=== PATIENT | male | born 1960 | race Two or more races ===

== ENCOUNTER → 2018-10-03 | Day surgery (SDC) | payer OTHER ==
[~2018-10-03] MED LIST: DULA0.75 SQ; HYDROmorphone 2 MG/ML VIAL IV PRN; IV RINGERS,LACTATED 1000ML 1,000 ML IV SCH; LIDOCAINE 1% PF 2 ML VIAL. ID PRN; LIDOCAINE 2% PF 5 ML VIAL. ONE; MORPHINE SULFATE 2 MG/ML VIAL. IV PRN; ONDANSETRON PF 4 MG/2 ML VIAL. IV PRN; PROCHLORPERAZINE 10 MG/2 ML VIAL. IV PRN; PROPOFOL 40 ML IV ONE; fentaNYL PF VIAL 100 MCG/2 ML VIAL IV PRN
[2018-10-03 12:13] VITALS: BP 124/79
--- NOTE | 2018-10-04 14:07 | PATHOLOGY ---
[facility] Accession Number: [id number] . 01 Material submitted: . PART A: small bowel - SMALL BOWEL BIOPSY PART B: stomach - GASTRIC BODY ANTRUM PART C: esophagus - DISTAL ESOPHAGUS . 01 Clinical history: . Pre-OP DX: RUQ pain, Hx of polyps, constipation Post-OP DX: Gastritis, inflammation . 02 Diagnosis: A. Small bowel biopsies: - No significant pathologic abnormalities. . B. Gastric biopsies, gastric body and antrum: - Mild chronic gastritis. . C. Esophageal biopsies, distal esophagus: - Segments of esophagogastric and gastric mucosa showing chronic inflammation, consistent with reflux changes. . (JPM:mml; 10/04/2018) [facility]/10/04/2018 . 02 Comment: Sections of the small bowel biopsy reveal segments of duodenal and small intestine mucosa. Where best oriented, the mucosal villi show no sprue-like changes or significant inflammatory changes. . Sections of the gastric biopsy reveal segments of gastric body and antral/body transition mucosa showing congestion and mild chronic inflammation. There is also a small segment of small bowel mucosa present. A properly-controlled immunoperoxidase stain for Helicobacter is negative for Helicobacter organisms. . Sections of the distal esophageal biopsy reveal segments of esophagogastric and gastric mucosa showing mild to focal moderate chronic inflammation. The squamous esophageal mucosa appears hyperplastic. The findings are consistent with reflux changes. There is no evidence of Watts's change, dysplasia, or malignancy. . Special stain (B1): Immunoperoxidase stain for Helicobacter . (JPM:mml; 10/04/2018) . 02 Electronically signed: . Eduar Salas MD, Pathologist NPI- [id number] . 01 Gross description: . A. Received in formalin labeled "Fabian Barrett, small bowel BX," are 4 segments of jara soft tissue measuring 1.4 x 0.9 x 0.2 cm in aggregate dimensions and ranging from 0.3 to 0.5 cm in maximum dimension. The specimen is submitted entirely in cassette A1. . B. Received in formalin labeled "BarrettFabian, gastric body antrum," are 5 segments of jara soft tissue measuring 1.0 x 0.9 x 0.3 cm in aggregate dimensions and ranging from 0.1 to 0.5 cm in maximum dimension. The specimen is submitted entirely in cassette B1. . C. Received in formalin labeled "Barrett, Fabian, distal esophagus BX," are 3 segments of jara soft tissue measuring 1.5 x 0.9 x 0.2 cm in aggregate dimensions and ranging from 0.3 to 0.6 cm in maximum dimension. The specimen is submitted entirely in cassette C1. (TSD; 10/03/2018) TOB/TOB . 02 Pathologist provided ICD-10: K29.50, K20.8 . 02 CPT . 121444, 101773, 295234, [id number] Specimen Comment: A courtesy copy of this report has been sent to Specimen Comment: [phone], . Specimen Comment: Report sent to and Performed at: [address] [facility], [place] [id number] MD Ankush Davis MD Phone: [phone] Performed at: [facility] [address], [place] [id number] MD Eduar Salas MD Phone: [phone]
== END ==
LOC: ENDOS 10:35
PROVIDERS: ATTEND Internal Medicine Gastroenterology
DX: K29.50 Unspecified chronic gastritis without bleeding (principal); K21.0 Gastro-esophageal reflux disease with esophagitis; K57.30 Diverticulosis of large intestine without perforation or abscess without bleeding; K64.0 First degree hemorrhoids; Z86.010 Personal history of colon polyps; E11.9 Type 2 diabetes mellitus without complications; I10 Essential (primary) hypertension; F15.90 Other stimulant use, unspecified, uncomplicated; Z79.84 Long term (current) use of oral hypoglycemic drugs
CPT/HCPCS: 43239; 45378; 88305; 88342; J2001; J2704; 82962